=== PATIENT | female | born 2000 | race Caucasian/White ===

== ENCOUNTER 2020-10-27 10:37 | Outpatient (REF) | payer OTHER, SELFPAY ==
[2020-10-27 14:46] LABS: Anion Gap 14 (12-20); Blood Urea Nitrogen 18 mg/dL (9-16); Calcium 8.8 mg/dL (8.4-10.2); Carbon Dioxide 25 mmol/L (22-29); Chloride 103 mmol/L (96-108); Estimated Glomerular Filt Rate > 60; Glucose Random 72 mg/dL (60-115); Potassium 4.7 mmol/l (3.3-5.1); Sodium 137 mmol/L (135-145)
== END 2020-10-27 10:38 | disposition home or self-care (01) ==
LOC: HO.10HDL 10:37
PROVIDERS: Visit Provider Internal Medicine
DX: G43.909 Migraine, unspecified, not intractable, without status migrainosus (principal)
CPT/HCPCS: 36415; 80048; 82550; 86140

== ENCOUNTER 2021-05-26 09:51 | Outpatient (REF) | payer OTHER, SELFPAY ==
[2021-05-28 18:36] LABS: TS Negative Control Passed; TS Panel A 0; TS Panel B 0; TS Positive Control Passed; TSpotTB Negative (SeeBelow)
== END 2021-05-26 09:52 | disposition home or self-care (01) ==
LOC: HO.WFDLDS 09:51
PROVIDERS: Visit Provider Internal Medicine
DX: Z11.1 Encounter for screening for respiratory tuberculosis (principal)
CPT/HCPCS: 36415; 86481

== ENCOUNTER 2022-07-06 12:08 | Outpatient (REF) | payer OTHER, SELFPAY ==
[2022-07-06 13:40] LABS: MANUAL DIFF FLAG NO
[2022-07-06 13:44] LABS: Basophils Absolute Auto 0.1 X10*3/uL (0.0-0.2); Basophils Percent Auto 1.4 % (0-2); Eosinophils Absolute Auto 0.1 X10*3/uL (0.0-0.4); Eosinophils Percent Auto 2.2 % (0-4); Hematocrit 37.8 % (37.0-47.0); Hemoglobin 12.2 g/dl (12.0-16.0); Lymphocytes Absolute Auto 1.4 X10*3/uL (1.2-4.9); Lymphocytes Percent Auto 38.2 % (20-40); Mean Corpuscular HGB Conc 32.3 g/dl (31.0-35.0); Mean Corpuscular Hemoglobin 27.9 pg (27.0-33.0); Mean Corpuscular Volume 86.5 fL (80.0-98.0); Mean Platelet Volume 11.6 fL (9.4-12.3); Monocytes Absolute Auto 0.4 X10*3/uL (0.1-1.2); Monocytes Percent Auto 10.3 % (2-11); Neutrophils Absolute Auto 1.7 x10*3/uL (2.0-8.3); Neutrophils Percent Auto 47.9 % (45-73); Platelet Count 220 X10*3/uL (160-400); Red Blood Count 4.37 X10*6/uL (4.20-5.50); White Blood Count 3.6 X10*3/uL (4.8-10.8)
[2022-07-06 14:01] LABS: Anion Gap 14 (12-20); Blood Urea Nitrogen 17 mg/dL (9-16); C Reactive Protein 0.24 mg/dL (< or = 0.50); Calcium 9.1 mg/dL (8.4-10.2); Carbon Dioxide 25 mmol/L (22-29); Chloride 105 mmol/L (96-108); Estimated Glomerular Filt Rate > 60; Glucose Random 83 mg/dL (60-115); Sodium 140 mmol/L (135-145)
[2022-07-06 14:22] LABS: Thyroid Stimulating Hormone 0.83 uIU/mL (0.32-4.0)
[2022-07-06 14:30] LABS: Vitamin B12 339 pg/mL (200-900)
[2022-07-06 14:41] LABS: Erythrocyte Sedimentation Rate 2 MM/HR (0-20)
== END 2022-07-06 12:09 | disposition home or self-care (01) ==
LOC: HO.10HDL 12:08
PROVIDERS: Visit Provider Internal Medicine
DX: G43.909 Migraine, unspecified, not intractable, without status migrainosus (principal); R42 Dizziness and giddiness
CPT/HCPCS: 36415; 80048; 82550; 82607; 84443; 85025; 85652; 86140

== ENCOUNTER 2023-03-29 06:55 | Outpatient (REF) | payer OTHER, SELFPAY ==
--- NOTE | ~2023-03-29 | MR_ITS ---
EXAMINATION: MRI OF THE BRAIN WITHOUT CONTRAST CLINICAL INFORMATION: Migraine without aura. Trauma. COMPARISON: There are no prior studies available for comparison. TECHNIQUE: MRI of the brain was obtained using routine sequences without contrast. FINDINGS: No diffusion abnormalities are identified to suggest an acute or subacute infarct. No mass effect or midline shift is seen. The ventricles and sulci are normal in size. There is a relatively well-defined area of increased T2 and FLAIR signal in the left lobe laterally, which measures 1.3 x 0.7 cm. It does not have corresponding abnormal diffusion signal or decreased gradient signal. It has low signal on the T1 sequences. No extra-axial fluid collections are seen. The brainstem and cerebellum are normal. No pathologic magnetic susceptibility artifact is identified on the gradient refocused acquisition. The craniovertebral junction, marrow signal, and midline structures are normal. The major intracranial flow-voids at the level of the [place] are preserved. The dural venous sinus flow-voids are maintained. The mastoid air cells and paranasal sinuses are well-aerated. MR/MR head/brain wo con IMPRESSION: 1. There are no acute bleeds or infarcts. 2. There is an area of increased T1 and T2 signal in the left frontal lobe, which is nonspecific. This may be consistent with an area of demyelination; correlate clinically. However a low-grade neoplasm cannot be excluded. Recommend follow-up MRI scan of the brain with contrast for further assessment.
== END 2023-03-29 06:56 | disposition home or self-care (01) ==
LOC: HO.MRI 06:55
PROVIDERS: PCP Internal Medicine; Visit Provider Psychiatry & Neurology Neurology
DX: G43.009 Migraine without aura, not intractable, without status migrainosus (principal)
CPT/HCPCS: 70551

== ENCOUNTER 2023-05-10 15:42 | Outpatient (REF) | payer OTHER, SELFPAY ==
--- NOTE | ~2023-05-10 | MR_ITS ---
EXAMINATION: MRI OF THE BRAIN WITH CONTRAST CLINICAL INFORMATION: Brain lesion. COMPARISON: Noncontrast MRI scan 03/29/2023. TECHNIQUE: MRI of the brain was obtained using routine post contrast sequences. Intravenous contrast administration: Gadavist 5.5 mL. FINDINGS: There is an area of low T1 signal in the left frontal lobe, which measures 0.8 x 1.0 cm. It does not demonstrate abnormal enhancement. There is a developmental venous anomaly in the anterior left centrum semiovale. Brain parenchymal signal elsewhere appears normal, and there are no other areas of abnormal enhancement. No extra-axial fluid collections are seen. The brainstem and cerebellum are normal. The visualized craniovertebral junction, marrow signal, and midline structures are normal. The major intracranial flow-voids at the level of the [place] are preserved. The dural venous sinus flow-voids are maintained. The mastoid air cells and paranasal sinuses are well-aerated, but are better evaluated on the prior MRI scan. MR/MR head/brain w con IMPRESSION: 1. There is a small area of low T1 signal in the left frontal lobe without abnormal enhancement which is nonspecific, corresponding to findings seen on the prior study. It may be consistent with an area of demyelination, although a low-grade glioma cannot be excluded. Recommend interval follow-up MRI scan for surveillance. 2. There is a left frontal centrum semiovale developmental venous anomaly.
== END 2023-05-10 15:43 | disposition home or self-care (01) ==
LOC: HO.MRI 15:42
PROVIDERS: PCP Internal Medicine; Visit Provider Psychiatry & Neurology Neurology
DX: G93.9 Disorder of brain, unspecified (principal)
CPT/HCPCS: 70552; A9585